=== PATIENT | male | born 1960 | race Two or more races ===

== ENCOUNTER 2016-09-14 23:57 | Emergency (ER) | payer SELFPAY ==
[~2016-09-14] VITALS: Ht 188 cm; Wt 84.8 kg
--- NOTE | ~2016-09-14 | CR72 ---
[facility] A Service of [facility] & [facility] RADIOLOGY TEXT RESULTS PATIENT: LATA CASTILLO LOCATION: [facility] : 60 UNIT #: [id number] AGE: [address]: Dante Berger MD SEX: M ORDER DR: [id number] [facility] [address] [place], [place] [address] [id number] E MR#: [id number] Acc #: [id number] NAME: LATA CASTILLO : 1960 SEX: M STUDY DATE/TIME: 09/15/2016 0:54 UNIT: [facility] ROOM: STUDY DESCRIPTION: CR Chest Single View Portable Attending Physician: Dante Berger M.D. Ordering Physician: Er Physicians Primary Care Physician: Primary Care Physician No MEDICAL IMAGING REPORT This report is preliminary unless electronic signature is present EXAM Portable chest INDICATIONS Chest pain tonight. PROCEDURE Frontal view chest. COMPARISON 11/13/2015 FINDINGS Upper limits of normal heart size. Lungs are clear. No pleural fluid. No pneumothorax. IMPRESSION Upper limits of normal heart size. No active process. Dictated by... Christophe Jane M.D. THIS IS AN ELECTRONICALLY VERIFIED REPORT Christophe Jane M.D. at 09/15/2016 10:03 PM AMAURY/ronaldo TD: 09/15/2016 09:56 JOB #: [id number] MEDICAL IMAGING REPORT Page 1 of 1 COPY
--- NOTE | ~2016-09-14 | CR127 ---
[facility] A Service of [facility] & [facility] RADIOLOGY TEXT RESULTS PATIENT: LATA CASTILLO LOCATION: [facility] : 60 UNIT #: [id number] AGE: [address]: Dante Berger MD SEX: M ORDER DR: [id number] [facility] [address] [place], [place] [address] [id number] E MR#: [id number] Acc #: [id number] NAME: LATA CASTILLO : 1960 SEX: M STUDY DATE/TIME: 09/15/2016 1:41 UNIT: [facility] ROOM: STUDY DESCRIPTION: CR Foot Complete Min 3 View Rt Attending Physician: Dante Berger M.D. Ordering Physician: Jayesh Barrios D.O. Primary Care Physician: Primary Care Physician No MEDICAL IMAGING REPORT This report is preliminary unless electronic signature is present EXAM Right foot series INDICATION Right foot pain for the past day. PROCEDURE 3 views of the right foot. COMPARISON None FINDINGS No acute fracture or dislocation. IMPRESSION No acute findings. Dictated by... Christophe Jane M.D. THIS IS AN ELECTRONICALLY VERIFIED REPORT Christophe Jane M.D. at 09/15/2016 10:01 PM Liam TD: 09/15/2016 10:00 JOB #: [id number] MEDICAL IMAGING REPORT Page 1 of 1 COPY
--- NOTE | ~2016-09-14 | CT16 ---
[facility] A Service of [facility] RADIOLOGY TEXT RESULTS PATIENT: LATA CASTILLO LOCATION: [facility] : 60 UNIT #: [id number] AGE: [address]: Dante Berger MD SEX: M ORDER DR: [id number] [facility] [address] [place], [place] [address] [id number] E MR#: [id number] Acc #: [id number] NAME: LATA CASTILLO : 1960 SEX: M STUDY DATE/TIME: 09/15/2016 4:02 UNIT: [facility] ROOM: STUDY DESCRIPTION: CT Angio Chest for PE Attending Physician: Dante Berger M.D. Ordering Physician: Jayesh Barrios D.O. Primary Care Physician: Primary Care Physician No MEDICAL IMAGING REPORT This report is preliminary unless electronic signature is present EXAM CTA chest PE protocol INDICATION Elevated D-dimer level, chest pain, shortness of air today. PROCEDURE Contrast-enhanced CTA of the chest attention on opacification pulmonary arteries, coronal 3-D MIP sagittal reformatted images reconstructed and submitted. This CT exam was performed with one or more of the following radiation dose reduction techniques: automatic exposure control, adjustment of mA and/or kV according to patient size, and iterative reconstruction. COMPARISON 09/11/2014 FINDINGS No evidence for pulmonary embolus. No evidence for acute aortic injury. No adenopathy. Hepatic cysts, largest posterior right hepatic lobe measures 4.3 cm. No acute findings in the included upper abdomen. No dense consolidation. No aggressive appearing bone lesion. IMPRESSION No acute findings in the chest. No evidence for pulmonary embolus. Dictated by... Christophe Jane M.D. THIS IS AN ELECTRONICALLY VERIFIED REPORT Christophe Jane M.D. at 09/15/2016 10:02 PM AMAURY/javier [facility] A Service of [facility] RADIOLOGY TEXT RESULTS PATIENT: LATA CASTILLO LOCATION: [facility] : 60 UNIT #: [id number] AGE: [address]: Dante Berger MD SEX: M ORDER DR: TD: 09/15/2016 10:26 JOB #: [id number] MEDICAL IMAGING REPORT Page 1 of 1 COPY
--- NOTE | ~2016-09-14 | EKG ---
PATIENT: LATA CASTILLO UNIT #: [id number] Ventricular Rate: 81 BPM Atrial Rate: 81 BPM P-R Interval: 146 ms QRS Duration: 80 ms Q-T Interval: 362 ms QTC Calculation(Bezet): 420 ms P [place]: 37 degrees Calculated R [place]: 17 degrees Calculated T [place]: 4 degrees Diagnosis Line: Normal sinus rhythm Diagnosis Line: Possible Left atrial enlargement Diagnosis Line: Borderline ECG Diagnosis Line: Diagnosis Line: Confirmed by FRAN GAMBOA MD ([id number]) on Diagnosis Line: 09/15/2016 9:36:41 AM INTERPRETING MD: BEE HARVEY
--- NOTE | ~2016-09-14 | US85 ---
[facility] A Service of [facility] RADIOLOGY TEXT RESULTS PATIENT: LATA CASTILLO LOCATION: [facility] : 60 UNIT #: [id number] AGE: [address]: Dante Berger MD SEX: M ORDER DR: [id number] [place] [id number] [place], [place] [address] [id number] E MR#: [id number] Acc #: [id number] NAME: LATA CASTILLO : 1960 SEX: M STUDY DATE/TIME: 09/15/2016 8:10 UNIT: [facility] ROOM: STUDY DESCRIPTION: LE Veins Unilat or Ltd Stdy Attending Physician: Dante Berger M.D. Ordering Physician: Jayesh Barrios D.O. Primary Care Physician: Primary Care Physician No MEDICAL IMAGING REPORT This report is preliminary unless electronic signature is present EXAM Right lower extremity venous Doppler HISTORY Right leg pain x1 day TECHNIQUE Venous ultrasound examination of the right lower extremity was performed using grayscale, spectral Doppler and color flow Doppler imaging. FINDINGS The examination is negative. There is no evidence of right lower extremity deep venous thrombus from the groin to the lower calf. Visualized greater saphenous vein is also patent. IMPRESSION Negative examination. No evidence of right lower extremity deep venous thrombosis. Dictated by... Maame Owusu M.D. THIS IS AN ELECTRONICALLY VERIFIED REPORT Maame Owusu M.D. at 09/16/2016 9:02 AM MICHELINE/ronaldo TD: 09/15/2016 12:57 JOB #: [id number] MEDICAL IMAGING REPORT [facility] A Service [facility] RADIOLOGY TEXT RESULTS PATIENT: LATA CASTILLO LOCATION: [facility] : 60 UNIT #: [id number] AGE: [address]: Dante Berger MD SEX: M ORDER DR: Page 1 of 1 COPY
[~2016-09-14 23:57] MED LIST: AMLODIPINE BESYL5 MG PO; ASPIRIN81 MG PO; DARVOCET-N 1001 TA1 PO; FLEXERIL PO; FLEXERIL10 M1 PO; FLEXERIL10 MG PO; FLEXTRA CAPSULE1 CAP PO; HYDROCHLOROTHIA25 MG PO; HYDROCODON-ACE1 EACH PO; IBUPROFEN PO; IBUPROFEN800 MG PO; KETOPROFEN PO; LISINOPRIL10 MG PO; LOC PO; LORTAB 10-5001 EACH PO; MEDROL DOSEPAK4 MG DOB; MEDROL DOSEPAK4 MG PO; NORCO 5/325 TAB1 TAB PO; ORUDIS75 M1 PO; PEN-VEE K PO; PREDNISONE PO; PRILOSEC PO; PRILOSEC40 MG PO; ULTRAM PO
[2016-09-15 01:56] LABS: POC - CKMB 2.7 ng/mL (0.0-7.9); POC - TROPONIN <0.05 ng/mL (<=0.05)
[2016-09-15 02:18] LABS: BASOPHIL% 0.3 % (0-2.5); EOSINOPHIL# 0.1 X10e3 (0-0.7); EOSINOPHIL% 1.5 % (0.0-7.0); HEMATOCRIT 41.3 % (38.0-50.0); HEMOGLOBIN 13.7 gm/dL (13.0-16.0); LYMPHOCYTE# 1.2 X10e3 (1.0-3.5); LYMPHOCYTE% 16.5 % (17.0-45.0); MEAN CELL VOLUME 85.9 FL (83-96); MEAN CORPUSCULAR HEMOGLOBIN 28.4 PG (28-34); MEAN CORPUSCULAR HGB CONC 33.1 g/dL (30-36); MONOCYTE# 0.8 X10e3 (0-1.0); MONOCYTE% 10.5 % (3.0-12.0); NEUTROPHIL# 5.3 X10e3 (1.5-7.1); NEUTROPHIL% 71.2 % (40-75); PLATELET COUNT 177 X10e3 (140-420); RED BLOOD COUNT 4.81 X10e (3.90-5.60); RED CELL DISTRIBUTION WIDTH 14.1 % (11.0-15.5); WHITE BLOOD COUNT 7.4 X10e3 (4.0-10.5)
[2016-09-15 02:21] LABS: DIFF IND NO
[2016-09-15 02:33] LABS: INR 0.9; PARTIAL THROMBOPLASTIN TIME 24.2 SECONDS (23.5-31.3)
[2016-09-15 02:45] LABS: BILIRUBIN, DIRECT 0.1 mg/dL (0.0-0.2); BILIRUBIN,INDIRECT 0.2 mg/dL (0.0-0.9); BILIRUBIN,TOTAL 0.3 mg/dL (0.2-2.0); BUN/CREATININE RATIO 13.63; CALCIUM SERUM 8.7 mg/dL (8.4-10.2); CREATININE SERUM 1.1 mg/dL (0.6-1.4); GLOM FILT RATE Estimated 75.2 mL/min (>60); POTASSIUM 3.7 mmol/L (3.5-5.1); PROTEIN TOTAL SERUM 7.2 g/dL (6.0-8.3)
[2016-09-15 03:40] LABS: POC - CKMB 2.6 ng/mL (0.0-7.9); POC - TROPONIN <0.05 ng/mL (<=0.05)
== END 2016-09-15 09:40 | disposition home or self-care (01) ==
LOC: CED 23:57
PROVIDERS: Emergency Medicine
DX: R07.89 Other chest pain (principal); M79.671 Pain in right foot; I10 Essential (primary) hypertension; Z79.82 Long term (current) use of aspirin; Z79.899 Other long term (current) drug therapy
CPT/HCPCS: 36415; 71010; 71275; 73630; 80048; 80076; 82553; 84484; 85025; 85379; 85610; 85730; 93005; 93971; 96374; 99285; J1885; Q9967